=== PATIENT | male | born 1995 | race Caucasian/White ===

== ENCOUNTER 2020-09-25 10:36 | Inpatient (IN) | payer OTHER ==
[~2020-09-25] VITALS: Ht 177.8 cm; Wt 61.4 kg
[2020-09-25] MEDS ORDERED: SODIUM CHLORIDE 0.9% 1,000 ML IV ONE (11:15)
[2020-09-25] MEDS ORDERED: ACETAMINOPHEN 325 MG TABLET PO PRN (11:15)
[2020-09-25] MEDS ORDERED: MAGNESIUM HYDROXIDE SUSPENSION 30 ML UDCUP PO PRN (11:15)
[2020-09-25] MEDS ORDERED: ONDANSETRON HCL 4 MG/2 ML VIAL IVP PRN (11:15)
[2020-09-25 11:16] LABS: COVID AG,FIA SOURCE NASOPHARYNGEAL
[2020-09-25 11:49] LABS: BASOPHILS % (AUTO) 0.4 % (0.0-2.0); EOSINOPHILS % (AUTO) 3.1 % (1.0-6.0); HEMATOCRIT 39.9 % (41-53); HEMOGLOBIN 13.4 g/dL (13.5-17.5); LYMPHOCYTES # (AUTO) 1.2 K/uL (1.0-4.8); MEAN CORPUSCULAR HEMOGLOBIN 29.1 pg (26.0-34.0); MEAN CORPUSCULAR HGB CONC 33.6 G/dL (31.0-37.0); MEAN CORPUSCULAR VOLUME 87 fL (80-100); MONOCYTES # (AUTO) 0.2 K/uL (0.1-1.0); NEUTROPHILS # (AUTO) 4.1 K/uL (1.8-7.7); NEUTROPHILS % (AUTO) 71.5 % (40.0-70.0); PLATELET COUNT (AUTO) 257 K/uL (150-450)
[2020-09-25 12:24] LABS: ANION GAP 3 mmol/L (8-16); CALCIUM, TOTAL 9.2 mg/dL (8.8-10.5); CARBON DIOXIDE 28 mmol/L (22-29); CHLORIDE 103 mmol/L (98-107); CREATININE 0.81 mg/dL (0.60-1.30); GLOMERULAR FILTR. RATE CALC > 60 mL/min (>60); GLUCOSE,RANDOM 102 mg/dL (70-110); SODIUM SERUM 134 mmol/L (136-145); UREA NITROGEN, BLOOD 10 mg/dL (7-18)
[2020-09-25 12:30] LABS: ALANINE AMINOTRANSFERASE 22 U/L (12-78); ALBUMIN 4.2 g/dL (3.4-5.0); ALKALINE PHOSPHATASE 93 U/L (46-116); ASPARTATE AMINOTRANSFERASE 19 U/L (15-37); BILIRUBIN,TOTAL 0.4 mg/dL (0.1-1.0); TOTAL PROTEIN, SERUM 7.8 g/dL (6.4-8.2)
[2020-09-25 12:49] LABS: AMPHET/METH SCREEN,URINE NEGATIVE (NEGATIVE); BARBITURATE SCREEN, URINE NEGATIVE (NEGATIVE); BENZODIAZEPINES SCREEN,URINE POSITIVE (NEGATIVE); CANNABINOID SCREEN,URINE NEGATIVE (NEGATIVE); COCAINE SCREEN,URINE POSITIVE (NEGATIVE); METHADONE SCREEN, URINE NEGATIVE (NEGATIVE); OPIATE SCREEN,URINE NEGATIVE (NEGATIVE); PHENCYCLIDINE SCREEN,URINE NEGATIVE (NEGATIVE)
[2020-09-25] MEDS: DiphenhydrAMINE HCL 50 MG/ML VIAL IVP PRN ×2 (14:49→22:45)
[2020-09-25 15:29] VITALS: BP 137/72
[2020-09-25] MEDS: NICOTINE 21 MG/24 HOUR PATCH TD SCH (16:57)
[2020-09-25 20:22] VITALS: BP 120/74
[2020-09-25] MEDS: FAMOTIDINE 20 MG TABLET PO SCH (20:26)
[2020-09-25] MEDS: ZOLPIDEM TARTRATE 5 MG TABLET PO PRN (20:26)
[2020-09-25] MEDS: LORazepam 2 MG/ML VIAL IVP PRN (21:20)
[2020-09-25 23:50] VITALS: BP 108/51
[2020-09-26] MEDS: LORazepam 2 MG/ML VIAL IVP PRN (04:59)
[2020-09-26 05:09] VITALS: BP 123/84
[2020-09-26 08:11] VITALS: BP 116/73
[2020-09-26] MEDS: FAMOTIDINE 20 MG TABLET PO SCH ×2 (08:17→20:09)
[2020-09-26] MEDS: NICOTINE 21 MG/24 HOUR PATCH TD SCH (08:18)
[2020-09-26] MEDS: QUEtiapine FUMARATE 25 MG TABLET PO SCH ×2 (11:43→20:09)
[2020-09-26] MEDS: DiphenhydrAMINE HCL 50 MG/ML VIAL IVP PRN ×2 (12:36→20:10)
[2020-09-26] MEDS: BISMUTH SUBSALICYLATE 262 MG CHEWABLE TABLET CHEW PRN (18:20)
[2020-09-26 20:50] VITALS: BP 120/72
[2020-09-27] MEDS: DiphenhydrAMINE HCL 50 MG/ML VIAL IVP PRN ×2 (05:12→13:20)
[2020-09-27 06:12] VITALS: BP 109/64
[2020-09-27] MEDS: FAMOTIDINE 20 MG TABLET PO SCH ×2 (08:34→20:47)
[2020-09-27] MEDS: QUEtiapine FUMARATE 25 MG TABLET PO SCH ×2 (08:34→20:47)
[2020-09-27] MEDS: NICOTINE 21 MG/24 HOUR PATCH TD SCH (08:34)
[2020-09-27 12:31] VITALS: BP 112/70
[2020-09-27 20:05] VITALS: BP 123/59
[2020-09-27] MEDS: ZOLPIDEM TARTRATE 5 MG TABLET PO PRN (20:51)
[2020-09-28 04:45] VITALS: BP 110/69
[2020-09-28 08:25] VITALS: BP 120/54
[2020-09-28] MEDS: QUEtiapine FUMARATE 25 MG TABLET PO SCH ×2 (08:59→21:24)
[2020-09-28] MEDS: NICOTINE 21 MG/24 HOUR PATCH TD SCH (08:59)
[2020-09-28] MEDS: FAMOTIDINE 20 MG TABLET PO SCH ×2 (08:59→21:24)
[2020-09-28] MEDS: BISMUTH SUBSALICYLATE 262 MG CHEWABLE TABLET CHEW PRN (09:04)
[2020-09-28] MEDS: DiphenhydrAMINE HCL 50 MG/ML VIAL IVP PRN (09:05)
[2020-09-28 20:02] VITALS: BP 107/76
[2020-09-28] MEDS: ZOLPIDEM TARTRATE 5 MG TABLET PO PRN (21:24)
[2020-09-29 04:20] VITALS: BP 132/73
[2020-09-29 07:25] LABS: BASOPHILS % (AUTO) 0.1 % (0.0-2.0); EOSINOPHILS % (AUTO) 0.1 % (1.0-6.0); HEMOGLOBIN 14.9 g/dL (13.5-17.5); LYMPHOCYTES # (AUTO) 1.8 K/uL (1.0-4.8); LYMPHOCYTES % (AUTO) 17.9 % (22.0-44.0); MEAN CORPUSCULAR HEMOGLOBIN 28.9 pg (26.0-34.0); MEAN CORPUSCULAR HGB CONC 33.1 G/dL (31.0-37.0); MEAN CORPUSCULAR VOLUME 88 fL (80-100); MONOCYTES # (AUTO) 0.8 K/uL (0.1-1.0); MONOCYTES % (AUTO) 8.2 % (2.0-9.0); NEUTROPHILS # (AUTO) 7.6 K/uL (1.8-7.7); NEUTROPHILS % (AUTO) 73.7 % (40.0-70.0); PLATELET COUNT (AUTO) 358 K/uL (150-450); RED BLOOD CELL COUNT(AUTO) 5.15 MIL/uL (4.50-5.90); RED CELL DISTRIBUTION WIDTH 13.8 % (11.5-14.5)
[2020-09-29 07:37] LABS: ANION GAP 14 mmol/L (8-16); CALCIUM, TOTAL 9.2 mg/dL (8.8-10.5); CARBON DIOXIDE 22 mmol/L (22-29); CHLORIDE 108 mmol/L (98-107); CREATININE 0.82 mg/dL (0.60-1.30); GLOMERULAR FILTR. RATE CALC > 60 mL/min (>60); GLUCOSE,RANDOM 102 mg/dL (70-110); POTASSIUM 3.5 mmol/L (3.5-5.1); SODIUM SERUM 144 mmol/L (136-145); UREA NITROGEN, BLOOD 29 mg/dL (7-18)
[2020-09-29] MEDS: FAMOTIDINE 20 MG TABLET PO SCH (07:53)
[2020-09-29] MEDS: QUEtiapine FUMARATE 25 MG TABLET PO SCH (07:53)
[2020-09-29] MEDS: NICOTINE 21 MG/24 HOUR PATCH TD SCH (07:53)
[2020-09-29 08:25] VITALS: BP 115/74
[2020-09-29] MEDS ORDERED: POTASSIUM CHLORIDE 10 MEQ ER TABLET PO ONE (10:15)
[2020-09-29] MEDS ORDERED: ACET-3207 PO (10:22)
[2020-09-29] MEDS ORDERED: [UNRECOGNIZED DRUG - CODE] PO (10:24)
[2020-09-29] MEDS ORDERED: MOM30 PO (10:25)
== END 2020-09-29 12:40 | DRG 897 ==
LOC: EMS 10:41 → 6N 13:59 → 6S 15:42
PROVIDERS: ADMIT Internal Medicine; ATTEND Internal Medicine
DX: F11.13 Opioid abuse with withdrawal (principal); F17.210 Nicotine dependence, cigarettes, uncomplicated; F14.10 Cocaine abuse, uncomplicated; R19.7 Diarrhea, unspecified; F19.10 Other psychoactive substance abuse, uncomplicated; F10.10 Alcohol abuse, uncomplicated; R05 Cough; Z20.822 Contact with and (suspected) exposure to COVID-19; Z79.899 Other long term (current) drug therapy
CPT/HCPCS: 87426; 99285; G0480; J1200; J2060; J2405

== ENCOUNTER 2020-09-30 09:05 | Inpatient (IN) | payer OTHER ==
[~2020-09-30] VITALS: Ht 177.8 cm; Wt 63.4 kg
[~2020-09-30 09:05] MED LIST: ACET-3207 PO; MOM30 PO; [UNRECOGNIZED DRUG - CODE] PO
[2020-09-30] MEDS ORDERED: SODIUM CHLORIDE 0.9% 1,000 ML IV ONE ×3 (10:00→12:30)
[2020-09-30 10:33] LABS: BASOPHILS % (AUTO) 0.1 % (0.0-2.0); EOSINOPHILS % (AUTO) 0.1 % (1.0-6.0); HEMATOCRIT 46.4 % (41-53); HEMOGLOBIN 15.3 g/dL (13.5-17.5); LYMPHOCYTES # (AUTO) 2.2 K/uL (1.0-4.8); MEAN CORPUSCULAR HEMOGLOBIN 28.6 pg (26.0-34.0); MEAN CORPUSCULAR HGB CONC 32.9 G/dL (31.0-37.0); MEAN CORPUSCULAR VOLUME 87 fL (80-100); MONOCYTES # (AUTO) 0.8 K/uL (0.1-1.0); MONOCYTES % (AUTO) 6.7 % (2.0-9.0); NEUTROPHILS # (AUTO) 9.1 K/uL (1.8-7.7); NEUTROPHILS % (AUTO) 75.1 % (40.0-70.0); PLATELET COUNT (AUTO) 411 K/uL (150-450); RED BLOOD CELL COUNT(AUTO) 5.34 MIL/uL (4.50-5.90); RED CELL DISTRIBUTION WIDTH 13.6 % (11.5-14.5)
[2020-09-30 10:46] LABS: ANION GAP 13 mmol/L (8-16); CALCIUM, TOTAL 9.5 mg/dL (8.8-10.5); CARBON DIOXIDE 23 mmol/L (22-29); CHLORIDE 109 mmol/L (98-107); GLOMERULAR FILTR. RATE CALC > 60 mL/min (>60); GLUCOSE,RANDOM 118 mg/dL (70-110); POTASSIUM 3.9 mmol/L (3.5-5.1); SODIUM SERUM 145 mmol/L (136-145); UREA NITROGEN, BLOOD 29 mg/dL (7-18)
[2020-09-30 10:52] LABS: ALANINE AMINOTRANSFERASE 15 U/L (12-78); ALBUMIN 4.4 g/dL (3.4-5.0); ALKALINE PHOSPHATASE 75 U/L (46-116); ASPARTATE AMINOTRANSFERASE 10 U/L (15-37); BILIRUBIN,TOTAL 0.7 mg/dL (0.1-1.0); LIPASE 219 U/L (73-393)
[2020-09-30 11:27] LABS: APPEARANCE,URINE CLEAR (CLEAR); BILIRUBIN,URINE NEGATIVE (NEGATIVE); GLUCOSE, URINE (UA) NEGATIVE (NEGATIVE); KETONES,URINE 40 mg/dL (NEGATIVE); LEUKOCYTE ESTERASE ,URINE NEGATIVE (NEGATIVE); NITRATE,URINE NEGATIVE (NEGATIVE); OCCULT BLOOD,URINE NEGATIVE (NEGATIVE); PROTEIN,URINE POS 1+ (NEGATIVE); UROBILINOGEN,URINE 0.2 mg/dL (<=1.0)
[2020-09-30 11:30] LABS: COVID AG,FIA SOURCE NASOPHARYNGEAL
[2020-09-30 11:30] LABS: BACTERIA,URINE None Seen /HPF (None Seen); RBC,URINE 0-2 /HPF (0-2); WBC,URINE 0-2 /HPF (0-5)
[2020-09-30 11:40] LABS: AMPHET/METH SCREEN,URINE NEGATIVE (NEGATIVE); BARBITURATE SCREEN, URINE NEGATIVE (NEGATIVE); BENZODIAZEPINES SCREEN,URINE NEGATIVE (NEGATIVE); CANNABINOID SCREEN,URINE NEGATIVE (NEGATIVE); COCAINE SCREEN,URINE POSITIVE (NEGATIVE); METHADONE SCREEN, URINE NEGATIVE (NEGATIVE); OPIATE SCREEN,URINE NEGATIVE (NEGATIVE); PHENCYCLIDINE SCREEN,URINE NEGATIVE (NEGATIVE)
[2020-09-30] MEDS ORDERED: LORazepam 2 MG/ML VIAL IVP ONE (11:45)
[2020-09-30] MEDS ORDERED: KETOROLAC TROMETHAMINE 30 MG/ML VIAL IVP ONE (11:45)
[2020-09-30] MEDS ORDERED: ACETAMINOPHEN 325 MG TABLET PO PRN (12:30)
[2020-09-30] MEDS ORDERED: MAGNESIUM HYDROXIDE SUSPENSION 30 ML UDCUP PO PRN (12:30)
[2020-09-30] MEDS: QUEtiapine FUMARATE 25 MG TABLET PO SCH ×2 (12:30→21:00)
[2020-09-30 15:00] VITALS: BP 121/77
[2020-09-30 19:33] VITALS: BP 115/61
[2020-09-30 23:35] VITALS: BP 114/54
[2020-10-01 04:45] VITALS: BP 109/74
[2020-10-01 08:13] VITALS: BP 116/58
[2020-10-01] MEDS: QUEtiapine FUMARATE 25 MG TABLET PO SCH ×2 (09:04→21:28)
[2020-10-01] MEDS: FAMOTIDINE 20 MG TABLET PO SCH (09:04)
[2020-10-01 19:52] VITALS: BP 113/67
[2020-10-02 04:35] VITALS: BP 110/67
[2020-10-02 07:28] VITALS: BP 118/64
[2020-10-02] MEDS: QUEtiapine FUMARATE 25 MG TABLET PO SCH ×2 (08:40→21:02)
[2020-10-02] MEDS: FAMOTIDINE 20 MG TABLET PO SCH (08:40)
[2020-10-02 20:00] VITALS: BP 118/73
[2020-10-03 04:00] VITALS: BP 104/67
[2020-10-03 08:16] VITALS: BP 110/67
[2020-10-03] MEDS: FAMOTIDINE 20 MG TABLET PO SCH (08:23)
[2020-10-03] MEDS: QUEtiapine FUMARATE 25 MG TABLET PO SCH (08:23)
[2020-10-03 14:45] LABS: BASOPHILS % (AUTO) 0.2 % (0.0-2.0); EOSINOPHILS % (AUTO) 1.5 % (1.0-6.0); HEMATOCRIT 41.7 % (41-53); HEMOGLOBIN 13.7 g/dL (13.5-17.5); LYMPHOCYTES # (AUTO) 2.7 K/uL (1.0-4.8); LYMPHOCYTES % (AUTO) 23.5 % (22.0-44.0); MEAN CORPUSCULAR HEMOGLOBIN 28.3 pg (26.0-34.0); MEAN CORPUSCULAR HGB CONC 32.9 G/dL (31.0-37.0); MEAN CORPUSCULAR VOLUME 86 fL (80-100); MONOCYTES # (AUTO) 0.8 K/uL (0.1-1.0); MONOCYTES % (AUTO) 6.6 % (2.0-9.0); NEUTROPHILS # (AUTO) 7.9 K/uL (1.8-7.7); NEUTROPHILS % (AUTO) 68.2 % (40.0-70.0); PLATELET COUNT (AUTO) 367 K/uL (150-450); RED BLOOD CELL COUNT(AUTO) 4.83 MIL/uL (4.50-5.90)
[2020-10-03 14:56] LABS: ANION GAP 9 mmol/L (8-16); CALCIUM, TOTAL 8.9 mg/dL (8.8-10.5); CARBON DIOXIDE 26 mmol/L (22-29); CHLORIDE 105 mmol/L (98-107); CREATININE 0.84 mg/dL (0.60-1.30); GLOMERULAR FILTR. RATE CALC > 60 mL/min (>60); GLUCOSE,RANDOM 86 mg/dL (70-110); POTASSIUM 4.4 mmol/L (3.5-5.1); SODIUM SERUM 140 mmol/L (136-145); UREA NITROGEN, BLOOD 15 mg/dL (7-18)
[2020-10-03 15:03] LABS: ALANINE AMINOTRANSFERASE 21 U/L (12-78); ALBUMIN 3.7 g/dL (3.4-5.0); ALKALINE PHOSPHATASE 99 U/L (46-116); ASPARTATE AMINOTRANSFERASE 13 U/L (15-37); BILIRUBIN,TOTAL 0.2 mg/dL (0.1-1.0); TOTAL PROTEIN, SERUM 7.1 g/dL (6.4-8.2)
== END 2020-10-03 17:40 | DRG 897 ==
LOC: EMS 09:09 → 6S 13:40
PROVIDERS: ADMIT Internal Medicine; ATTEND Internal Medicine
DX: F19.90 Other psychoactive substance use, unspecified, uncomplicated (principal); F17.210 Nicotine dependence, cigarettes, uncomplicated; Z91.19 Patient's noncompliance with other medical treatment and regimen; Z20.822 Contact with and (suspected) exposure to COVID-19; F12.90 Cannabis use, unspecified, uncomplicated
CPT/HCPCS: 74018; 87081; 87426; 99285; G0480; J1885; J2060; J7030; 36415-L1; 36415-TC